=== PATIENT | female | born 1995 | race American Indian/Alaskan Native ===

== ENCOUNTER 2020-07-19 10:22 | Emergency (ER) | payer SELFPAY ==
--- NOTE | 2020-07-19 11:02 | XRay Report ---
RIGHT SHOULDER 2 VIEWS INDICATION: Right shoulder pain. COMPARISON: No relevant prior imaging study available. FINDINGS: There is anterior dislocation of the humeral head with respect to the glenoid. No displaced fractures are seen. AC joint is normal. IMPRESSION: 1. Anterior right shoulder dislocation. Signer Name: Devante Morales MD Signed: 07/19/2020 10:57 AM Workstation Name: [email or web address]
[2020-07-19] MEDS ORDERED: SODIUM CHLORIDE 0.9% 1000 ML 1,000 ML IV ONE (11:37)
[2020-07-19] MEDS ORDERED: KETAMINE 500 MG/5 ML VIAL MDV IV ONE (11:37)
--- NOTE | 2020-07-19 11:43 | Emergency Department Report ---
HPI - General Chief Complaint: Shoulder Injury Time Seen by Provider: 07/19/20 11:37 - HPI HPI: This is a 24-year-old -[place] female presents to the emergency department with right shoulder pain and suspicion for a shoulder dislocation. Patient says that she has had multiple right-sided shoulder dislocations in the past, the last time being about 2 years ago. This morning she was stretching and it "just popped out of place." She last ate something last night. She has not taken anything for symptoms prior to presentation. ED Past Medical Hx - Past Medical History Previous Medical History?: No - Surgical History Past Surgical History?: No - Social History Smoking Status: Never Smoker Substance Use Type: None ED Review of Systems ROS: Stated complaint: DISLOCATION SHOULDER Other details as noted in HPI Comment: All other systems reviewed and negative Constitutional: denies: chills, fever Eyes: denies: eye pain, vision change ENT: denies: ear pain, throat pain Respiratory: denies: cough, shortness of breath Cardiovascular: denies: chest pain, palpitations Gastrointestinal: denies: abdominal pain, vomiting Genitourinary: denies: dysuria, discharge Musculoskeletal: arthralgia. denies: joint swelling Skin: denies: rash, lesions Neurological: denies: headache, weakness Physical Exam - Physical Exam Vital Signs: Vital Signs 07/19/20 11:30 Pulse Rate 77 Respiratory 24 Rate Blood Pressure 131/78 Physical Exam: GENERAL: The patient is well-developed well-nourished. HENT: Normocephalic. Atraumatic. Patient has moist mucous membranes. EYES: Extraocular motions are intact. NECK: Supple. Trachea is midline. CHEST/LUNGS: Clear to auscultation. There is no respiratory distress noted. HEART/CARDIOVASCULAR: Regular. There is no tachycardia. There is no murmur. ABDOMEN: Abdomen is soft, nontender. Patient has normal bowel sounds. SKIN: Skin is warm and dry. NEURO: The patient is awake, alert, and oriented. The patient is cooperative. The patient has no focal neurologic deficits. Normal speech. MUSCULOSKELETAL: There is right shoulder tenderness to palpation. The right upper extremity is being held in internal rotation against her body. Decreased range of motion of the right arm secondary to pain. Radial pulse +2/4 and capillary refill less than 2 seconds to the affected right upper extremity. ED Course Vital Signs 07/19/20 11:30 Pulse Rate 77 Respiratory 24 Rate Blood Pressure 131/78 - Moderate Sedation Indications: fracture/dislocation redu ASA Class: I Mallampati Airway Score: 1 Time of Last PO Intake: 19:00 (last night) Preparation: surveillance monitor applied, pulse oximeter, capnometry used, supp lemental O2 applied, reversal agents at bedside, suction/airway equipment at bedside, IV secured Ketamine: IV Ketamine Dose: 30 IV Propofol Dose (mgs): 40 Complications: none Patient Tolerated Procedure: well - Orthopedic Joint Reduction Joint #1 Consent Obtained: written consent Time Out Performed: Yes Side: right Joint Reduction Location: shoulder Analgesia: moderate sedation Shoulder Technique Used (if applicable): traction/counter-traction, external rotation Post-Reduction Neuro Exam: intact Post-Reduction Vascular Exam: intact Post Reduction X-Ray Obtained: Yes Post Reduction X-Ray Results: reduced Splint Applied: Yes Patient Tolerated Procedure: well ED Medical Decision Making - Radiology Data Radiology results: image reviewed interpreted by me: Shoulder x-ray #1 shows a anterior dislocation of the right shoulder. Post reduction x-ray of the shoulder shows appropriate reduction of the previously dislocated right shoulder. - Medical Decision Making Patient presents with right shoulder dislocation. She is neurovascularly intact. X-ray confirms anterior dislocation. Moderate sedation was done with a successful shoulder dislocation reduction. She is neurovascular intact after the procedure as well. Placed in a shoulder immobilizer. Reduction confirmed with repeat x-ray. Vital signs have been reassuring throughout her ED course. The patient will remain in the shoulder immobilizer until follow-up with orthopedist. Critical Care Time: No Critical care attestation.: If time is entered above; I have spent that time in minutes in the direct care of this critically ill patient, excluding procedure time. ED Disposition Clinical Impression: Dislocation of shoulder, right, closed Qualifiers: Encounter type: initial encounter Qualified Code(s): S43.004A - Unspecified dislocation of right shoulder joint, initial encounter Disposition: TO HOME OR SELFCARE Is pt being admited?: No Condition: Stable Instructions: Shoulder Dislocation (ED), Moderate Sedation (ED) Additional Instructions: Please follow-up with an orthopedist in the next few days. Remain in the shoulder immobilizer until follow-up with an orthopedist. I have given you a referral for to local orthopedist, Dr. Lombardi and [place]. Return to the emergency department with any worsening of your symptoms or with any acute distress. Referrals: PRIMARY CAREMD [Primary Care Provider] - 3-5 Days KEVIN LOMBARDI MD [Staff Physician] - 3-5 Days [facility] [Provider Group] - 3-5 Days Time of Disposition: 13:20
[2020-07-19] MEDS ORDERED: NALOXONE 2 MG/2 ML INJ ONE (12:13)
[2020-07-19] MEDS: propofoL 200 MG/20 ML VIAL IV ONE ×2 (12:22→12:39)
--- NOTE | 2020-07-19 13:08 | XRay Report ---
XR shoulder 1V RT INDICATION: Shoulder reduction. COMPARISON: Exam done earlier on 07/19/2020 FINDINGS: Previously visualized right glenohumeral joint dislocation appears to have been reduced appropriately since the prior study. Signer Name: Eyal Lanza MD Signed: 07/19/2020 1:04 PM Workstation Name: [id number]
[2020-07-19 14:33] VITALS: BP 142/82
== END 2020-07-19 13:35 | disposition home or self-care (01) ==
LOC: ED 10:22
DX: S43.004A Unspecified dislocation of right shoulder joint, initial encounter (principal); X58.XXXA Exposure to other specified factors, initial encounter; Y93.89 Activity, other specified; Y92.89 Other specified places as the place of occurrence of the external cause; Y99.8 Other external cause status
CPT/HCPCS: 23650; 73020; 73030; 96360; 99285; J2704; J7030; J2310